=== PATIENT | female | born 1965 | race Caucasian/White ===

== ENCOUNTER 2017-06-30 12:53 | Outpatient (CLI) | payer BC ==
[~2017-06-30 12:53] MED LIST: Gadobenate Dimeglumine 529 MG/1 ML (20ML VIAL) ONE
--- NOTE | 2017-06-30 16:44 | RAD ---
FOUR VIEWS LUMBAR SPINE: INDICATION: History of back surgery with low back pain radiating down the legs for 2 months. COMPARISON: Prior exam dated 09/22/13. FINDINGS: There are bilateral pedicle screws with interconnecting rods at L3 through L5. There are laminectomy changes at L4 and L5. There is stable dextroscoliosis of the lumbar spine at L3. Grade I anterolis thesis of L5 over S1 has developed in the interim. There is some reduction of the listhesis with ext ension. This does not appear to appreciably worsen with flexion. The SI joints appear within normal limits. IMPRESSION: 1. Interval development of grade anterolisthesis of L5 over S1 slightly reduced with extension but d oes not appear to worsen with flexion. 2. Stable postsurgical change of L3 through L5. 3. Stable dextroscoliosis of the lumbar spine. POS: [facility]
--- NOTE | 2017-06-30 17:41 | CT ---
CT LUMBAR SPINE: Date: 06/30/17 COMPARISON: 07/14/13. HISTORY: Back surgery in 2013. Low back pain radiating down the legs for 2 months. TECHNIQUE: Serial axial CT imaging obtained at 2 mm intervals from lower thoracic spine through inferior aspect of sacrum without contrast. Coronal and sagittal reformatted imaging obtained. FINDINGS: Evaluation for central canal and/or neural foraminal stenosis is limited on routine CT. The evaluation of the monosomous structures is limited on noncontrast enhanced imaging. There is bili kieran gas within the left lobe of the liver and there are postsurgical clips in the gallbladder fossa s uggesting prior cholecystectomy. There is diverticulosis of the imaged sigmoid colon. There are bilateral pedicle screws at the L3, L4, and L5 levels with vertically oriented interlocking rods. There is a subtle fracture involving the left L3 pedicle screw at the level of the pedicle. The hardw are appears intact otherwise. There is minimal anterolisthesis of L5 on S1 measuring in the 3.0 mm range. T12-L1: No osseous cause of significant central canal or neural foraminal stenosis. L1-2: No central canal or neural foraminal stenosis. Mild facet hypertrophy present bilaterally. L2-3: Bilateral facet hypertrophy and hypertrophy of ligamentum flavum noted, right greater than left. Ther e is no osseous cause of significant central canal or neural foraminal stenosis. L3-4: There is bilateral facet hypertrophy. There is no osseous cause of significant central canal or neura l foraminal stenosis. L4-5: Bilateral laminectomy changes are present. There is bilateral facet hypertrophy. There is no osseous cause of significant central canal or neural foraminal stenosis. L5-S1: Bilateral laminectomy changes are present. There is prominent bilateral facet hypertrophy, right grea ter than left. Probable mild associated neural foraminal stenosis. No significant central canal steno sis. No acute fracture or evidence of dislocation seen. Old fracture versus bone graft donor site noted in volving the posterior aspect of the right iliac wing medially. IMPRESSION: 1. Postoperative and degenerative changes seen within the lumbar spine. No acute osseous abnormality is seen. 2. There is a subtle fracture deformity involving the left L3 pedicle screw as detailed above. If fu rther assessment for underlying central canal and/or neural foraminal stenosis is clinically warrante d, lumbar spine CT myelogram suggested. POS: [facility]
--- NOTE | 2017-07-01 08:29 | MRI ---
MRI OF THE LUMBAR SPINE WITH AND WITHOUT IV CONTRAST: Date: 06/30/17 TECHNIQUE: Multiplanar, multisequence MR images were obtained of the lumbar spine with and without contrast util izing 13 cc of MultiHance. COMPARISON: MRI lumbar spine dated 06/15/13 and lumbar spine radiograph dated 09/22/13. FINDINGS: Postsurgical change of an L3 through L5 posterolateral interbody fusion is again seen with laminectom y changes at L4 and L5. The bone marrow signal intensity appears within normal limits. Conus is seen to terminate at approximately L1. At L5-S1, there is severe right and moderate left facet joint degenerative change. There is subtle Gr malissa I anterolisthesis. There is no appreciable central canal or neural foraminal narrowing. At L4-5, there is a broad based disc osteophyte complex without appreciable central canal narrowing. There is facet hypertrophy still at L4-5 on the right inducing mild right neural foraminal narrowing which appears similar to the comparison. The previously seen prominent right paracentral synovial cys t is no longer demonstrated. At L3-4, there is no appreciable central canal or neural foraminal narrowing. There is mild broad bas ed disc bulge. At L2-3, there is mild broad based bulge without appreciable central canal or neural foraminal narrow ing. At L1-2, there is mild facet joint degenerative change with broad based bulge without appreciable allen tral canal or neural foraminal narrowing. At T12-L1, there is mild facet joint degenerative change without appreciable central canal or neural foraminal narrowing. No definite abnormal region of enhancement is demonstrated. The visualized retroperitoneum appears wi thin normal limits. IMPRESSION: 1. Postoperative lumbar spine as above. 2. Stable mild residual neural foraminal narrowing on the right at L4-L5 due to facet joint hypertro phy. POS: [facility]
== END 2017-06-30 12:54 | disposition home or self-care (01) ==
LOC: SCSCT 12:53
PROVIDERS: ATTEND Surgery
DX: M47.26 Other spondylosis with radiculopathy, lumbar region (principal); M43.16 Spondylolisthesis, lumbar region; M41.9 Scoliosis, unspecified; M48.061 Spinal stenosis, lumbar region without neurogenic claudication; T84.216A Breakdown (mechanical) of internal fixation device of vertebrae, initial encounter; Z98.1 Arthrodesis status
CPT/HCPCS: 72120; 72131; 72158; A9579

== ENCOUNTER 2018-04-29 07:52 | Outpatient (CLI) | payer BC | END 2018-04-29 07:53 | disposition home or self-care (01) | LOC: BICRAD 07:52 | PROVIDERS: ATTEND Specialist | DX: M51.17 Intervertebral disc disorders with radiculopathy, lumbosacral region (principal); M47.26 Other spondylosis with radiculopathy, lumbar region | CPT/HCPCS: 72110 ==

== ENCOUNTER 2018-12-08 12:49 | Outpatient (CLI) | payer BC ==
--- NOTE | 2018-12-08 13:09 | RAD ---
EXAM: Two views chest PROVIDED CLINICAL HISTORY: Acute upper respiratory infection. Cough. COMPARISON: None FINDINGS: Cardiac silhouette and pulmonary vasculature are within normal limits. Linear and slight patchy densi ty is seen in the anterior aspect of the right middle lobe. While this could be related to atelectasis or scarring, developing pneumonia is a possibility. Follow-up to resolution is recommende d. No pleural fluid or pneumothorax apparent. Mild degenerative changes are seen in the spine. Surgical clips overlie the right upper quadrant. IMPRESSION: Linear and patchy densities anterior aspect right middle lobe. This could be related to atelectasis, but developing pneumonia should be considered, and follow-up chest radiograph to resolution is recommended.
== END 2018-12-08 12:50 | disposition home or self-care (01) ==
LOC: BICRAD 12:49
PROVIDERS: ATTEND Family Medicine
DX: J06.9 Acute upper respiratory infection, unspecified (principal); R05 Cough; J98.4 Other disorders of lung
CPT/HCPCS: 71046

== ENCOUNTER 2018-12-31 12:13 | Outpatient (CLI) | payer BC ==
--- NOTE | 2018-12-31 12:40 | RAD ---
EXAM: Chest PA and lateral: HISTORY: Abnormal findings on diagnostic imaging. Possible pneumonia. COMPARISON: 12/08/2018 FINDINGS: Heart: Normal cardiac silhouette Aorta: Unremarkable Pulmonary vessels: Normal Costophrenic angles: Costophrenic angles are clear. Lungs: Interval decrease in size and in the number of linear opacities in the middle lobe. Previous f indings may have been due to atelectasis or infiltrate. Residual linear opacity may represent subsegmental atelectasis or scar. No suspicious masses or consolidation with air bronchograms. Pneumothorax: No pneumothorax Osseous structures: Lumbar fusion hardware is incompletely evaluated. IMPRESSION: No acute cardiopulmonary process.
== END 2018-12-31 12:14 | disposition home or self-care (01) ==
LOC: BICRAD 12:13
PROVIDERS: ATTEND Family Medicine
DX: R93.89 Abnormal findings on diagnostic imaging of other specified body structures (principal)
CPT/HCPCS: 71046

== ENCOUNTER 2019-01-28 15:27 | Outpatient (CLI) | payer BC ==
--- NOTE | 2019-01-28 17:44 | MRI ---
MRI THORACIC SPINE NONCONTRAST: 01/28/19 HISTORY: 53-year-old female with M54.6, thoracic spine pain. COMPARISON: No prior MRIs of thoracic spine. FINDINGS: There is multilevel high grade degenerative disc disease in the cervical spine at C3-4, C4-5, C5-6, c ausing high grade central spinal canal stenoses, incompletely visualized on the manual arts therapist sagittal sequen ce. Thoracic vertebral body heights are maintained. Thoracic spinal cord is normal is size and signa l. No significant central spinal canal stenosis at any level. No enrique thoracic spinal cord compressi on at any level. Conus medullaris terminates at upper L2 level. Modic type II end plate marrow change s anteriorly at all levels from T5-6 through T9-10. Additional small region of Modic type I change at anterior inferior corner of T7. At T7-8, there is a small focal central disc protrusion or disc-osteophyte complex which abuts the ve ntral surface of the spinal cord. At T8-9, there is a central and left paracentral focal disc protrusion or disc-osteophyte complex kaylee t protrudes into the anterior aspect of the spinal canal but does not abut the spinal cord. There is no high grade neural foraminal stenosis and no enrique nerve root impingement, at any level. P erivertebral spaces are unremarkable. IMPRESSION: 1. 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 2. Small focal disc herinations or disc-osteophyte complexes protruding into the spinal canal at T7-8 and T8-9. The T7-8 protrusion abuts the ventral surface of the spinal cord. 3. No significant central spinal canal stenosis or significant neural foraminal stenosis at any level. 4. High grade cervical spondylosis causing multilevel high grade cervical central spinal canal s tenosis, incompletely imaged. Consider dedicated MRI of the cervical spine if the patient is symptoma tic there. POS: [facility]
== END 2019-01-28 15:28 | disposition home or self-care (01) ==
LOC: TBSIIMAG 15:27
PROVIDERS: ATTEND Family Medicine
DX: M54.6 Pain in thoracic spine (principal); M51.34 Other intervertebral disc degeneration, thoracic region; M47.812 Spondylosis without myelopathy or radiculopathy, cervical region; M48.02 Spinal stenosis, cervical region; M51.24 Other intervertebral disc displacement, thoracic region
CPT/HCPCS: 72146

== ENCOUNTER 2019-10-12 10:59 | Day surgery (SDC) | payer BC ==
[2019-10-11 10:46] VITALS: BMI 29.2
[2019-10-12] MEDS ORDERED: Propofol 1,000 MG/100 ML VIAL IV ONE (12:06)
[2019-10-12] MEDS ORDERED: Midazolam HCl 2 mg/2 ml Vial ONE (12:06)
[2019-10-12] MEDS ORDERED: Fentanyl 100 MCG/2 ML VIAL ONE (12:06)
[2019-10-12] MEDS ORDERED: Bupivacaine PF 0.5% 30 ML VIAL ONE (12:09)
[2019-10-12] MEDS ORDERED: EPINEPHrine 1 MG/ML AMP ONE (12:09)
[2019-10-12] MEDS ORDERED: Levofloxacin 500 mg/D5W 100 ml Premix Bag ONE (12:20)
--- NOTE | 2019-10-12 14:50 | RAD ---
THORACIC SPINE ONE VIEW: 10/12/19 HISTORY: Dorsal column stimulator insertion. A single C-arm view shows dorsal column stimulator is labeled as being at the T7-8 disc level. IMPRESSION: Placement of dorsal column stimulator. POS: [facility]
--- NOTE | 2019-10-12 20:52 | OP ---
DATE OF PROCEDURE: 10/12/2019 PREOPERATIVE DIAGNOSES: 1. Post-laminectomy syndrome. 2. Chronic pain syndrome. 3. Lumbar radiculopathy. POSTOPERATIVE DIAGNOSES: 1. Post-laminectomy syndrome. 2. Chronic pain syndrome. 3. Lumbar radiculopathy. PROCEDURE PERFORMED: 1. Spinal cord stimulator, generator implant. 2. Spinal cord stimulator lead implant x2. 3. Programming. SPECIMENS REMOVED: None. ESTIMATED BLOOD LOSS: 5 mL. DESCRIPTION OF PROCEDURE: The patient was taken to the procedure room, placed prone on the procedure room table. A time-out was performed. The back was prepped with DuraPrep and sterile drapes were applied. Using fluoroscopy, we located the interspace of L1-L2 and anesthetized the skin over this. We then made an incision vertically between L1 and L2 and then blunt dissected this down to the fascia. We used a 14-gauge supplied Cellayuhy needle inserted in paramedian fashion into the L1-L2 ligament. We used loss of resistance to gain access to the epidural space. Aspiration was negative for CSF or heme. We threaded an 8 Contact Ramachandran Spinal Cord Stimulator lead up the midline dorsal epidural space to the bottom of T7. We performed the exact same technique on the contralateral side. However, once the lead was then placed, the stylet on the lead would not retract. Therefore, we took this lead out and discarded it as it was a defective lead. We placed a new lead into the midline dorsal epidural space to be parallel to the initial lead that was placed. Stimulation was performed with the patient awake and she noted paresthesia in all pain areas. We then anesthetized the skin over the left buttock as to make an incision for the battery site. We made an incision and blunt dissected this down to Jeffrey's fascia. We dissected this inferiorly and superiorly to make a pocket. We placed anchors over the leads at this point and then anchor, so that it is secured to leads. We sutured this down to the fascia with 2-0 silk suture x2 for each lead. We tugged on the leads under continuous fluoro and the leads were not moving at this point. We placed a tunneling device between the 2 incision sites and threaded the leads through this tunneling device, brought them up to the battery site. We connected the battery to them and torqued them down to fixate them to the battery. Impedances were checked, which were all good. The battery was slipped into the pocket. We approximated all fascial layers with 2-0 Vicryl suture in simple interrupted fashion. We then closed the skin layer with 3-0 Vicryl Rapide suture in a subcuticular stitch. We then placed Dermabond over this, allowed it to dry and then placed a sterile 4 x 4 tape over this. The patient's was taken to day stay under stable condition. Job ID: [id number]
== END 2019-10-12 16:00 | disposition home or self-care (01) ==
LOC: SDC 10:59
PROVIDERS: ATTEND Specialist
PROC: 0JH70BZ Insertion of Single Array Stimulator Generator into Back Subcutaneous Tissue and Fascia, Open Approach (ICD-10-PCS; principal; 2019-10-12)
PROC: 00HU3MZ Insertion of Neurostimulator Lead into Spinal Canal, Percutaneous Approach (ICD-10-PCS; principal; 2019-10-12)
DX: M96.1 Postlaminectomy syndrome, not elsewhere classified (principal); G89.4 Chronic pain syndrome; M51.17 Intervertebral disc disorders with radiculopathy, lumbosacral region; M47.27 Other spondylosis with radiculopathy, lumbosacral region; F41.9 Anxiety disorder, unspecified; F32.9 Major depressive disorder, single episode, unspecified; J45.909 Unspecified asthma, uncomplicated; Z88.0 Allergy status to penicillin; Z88.5 Allergy status to narcotic agent
CPT/HCPCS: 72020; 76000; C1767; C1778; J0171; J1956; J2250; J2704; J3010; S0020

== ENCOUNTER 2019-10-23 02:20 | Emergency (ER) | payer BC ==
[2019-10-23 02:59] LABS: #Eosinphils 0.3 thou/uL (0.0-0.7); #Lymphocytes 1.4 thou/uL (1.20-3.40); #Monocytes 0.6 thou/uL (0.11-0.59); #Neutrophils 5.8 thou/uL (1.40-6.50); %Basophils 0.5 % (0.0-1.0); %Lymphocytes 16.5 % (21.0-51.0); %Monocytes 7.6 % (0.0-10.0); %Neutrophils 71.4 % (42.0-75.0); Hemoglobin 15.3 g/dL (12.0-16.0); Mean Corpuscular HGB CONC 35.1 g/dL (32.0-36.0); Mean Corpuscular Hemoglobin 32.7 pg (27.0-31.0); Mean Corpuscular Volume 93.2 fL (78.0-98.0); Mean Platelet Volume 8.7 fL (7.4-10.4); Platelet Count 339 thou/uL (130-400); RBC Distribution Width 11.4 % (11.5-14.5); Red Blood Cell (RBC) Count 4.69 mill/uL (4.20-5.40); White Blood Cell (WBC) Count 8.2 thou/uL (4.8-10.8)
[2019-10-23 03:18] LABS: Bilirubin Moderate (Negative); Blood, Urine Moderate (Negative); Glucose, Urine (Dipstick) 100 mg/dL (Negative); Leukocyte Small (Negative); Nitrite Negative (Negative); Protein, Urine (Dipstick) 100 mg/dL (Neg-Trace)
[2019-10-23 03:24] LABS: Bacteria/HPF 3+ HPF (None Seen); Squamous Epithelial Greater than 50 HPF (0-3); Transitional Epithelial 0-3 HPF (None Seen); WBC/HPF Greater than 50 HPF (0-3)
[2019-10-23 03:33] LABS: Clarity Cloudy (Clear)
[2019-10-23 03:41] LABS: RBC/HPF 21-50 HPF (0-3)
[2019-10-23 03:44] LABS: ALT (SGPT) 92 U/L (8-55); AST (SGOT) 44 U/L (5-34); Albumin 4.4 g/dL (3.5-5.0); Alkaline Phosphatase 79 U/L (40-110); Anion Gap 19 mmol/L (10-20); BUN (Urea Nitrogen) 13 mg/dL (9.8-20.1); Bilirubin, Total 0.3 mg/dL (0.2-1.2); Calc. Creatinine Clearance 0 mL/min (70-130); Calcium 9.4 mg/dL (7.8-10.44); Carbon Dioxide 16 mmol/L (22-29); Chloride 107 mmol/L (98-107); Estimated GFR-MDRD 68; Globulin 3.4 g/dL (2.4-3.5); Glucose 102 mg/dL (70-105); Potassium 4.8 mmol/L (3.5-5.1); Protein, Total 7.8 g/dL (6.0-8.3); Sodium 137 mmol/L (136-145)
[2019-10-23] MEDS ORDERED: cefTRIAXone\\ROCEPHIN 1 GM VIAL ONE (03:48)
--- NOTE | 2019-10-23 09:55 | RAD ---
CHEST 1 VIEW: Date: 10/23/2019 HISTORY: Fever. COMPARISON: Radiograph dated 10/12/2019 of thoracic spine. FINDINGS: Dorsal column stimulator electrodes are visualized and similar to the comparison exam. Lungs are clear. No pneumothorax. No effusion. No acute osseous abnormality. IMPRESSION: No acute intrathoracic abnormality. POS: [facility]
== END 2019-10-23 04:48 | disposition home or self-care (01) ==
LOC: ERS 02:20
DX: J10.1 Influenza due to other identified influenza virus with other respiratory manifestations (principal); N39.0 Urinary tract infection, site not specified; Z79.899 Other long term (current) drug therapy
CPT/HCPCS: 71045; 80053; 81003; 81015; 83605; 85025; 87040; 87804; 93005; 96361; 96365; J0696

== ENCOUNTER 2020-01-03 13:43 | Outpatient (CLI) | payer BC ==
--- NOTE | 2020-01-03 14:33 | CT ---
CT lumbar spine without contrast: HISTORY: Post laminectomy syndrome. Pain/pinching sensation in back that started one month ago. Right hip and heel pain. COMPARISON: 06/30/2017 FINDINGS: Minimal vascular calcifications are seen in the abdominal aorta. A few colonic diverticula are seen i n the region of the sigmoid colon. Remaining visualized retroperitoneal structures demonstrate a grossly normal nonenhanced CT appearance. Postoperative changes lumbar spine are again seen related to posterior fusion at the L3-4 and L4-5 le vels with bipedicular screws and posterior rods again transfixing these levels. Stable grade 1 anterolisthesis of L5 on S1 is present. Laminectomy defects are again seen extending from the L3-4 le javier to the L5-S1 level. Fracture of the left L3 pedicle screw is again seen and unchanged. Dorsal column stimulator device is partially imaged and entering the T12-L1 level. There is deformity again seen involving the right iliac bone which may be postoperative in origin versus remote injury. L1-2: No significant central canal or neural foraminal narrowing is seen. L2-3: Slight retrolisthesis of L2 on L3. Mild facet hypertrophic changes are present. No significant central canal or neural foraminal narrowing is present. L3-4: Minimal central disc protrusion is present. There is artifact seen at this level due to the ped icular screws, but central spinal canal and neural foramina do appear patent. L4-5: Artifact is seen at this level limiting evaluation of the central spinal canal, but there is no bony encroachment on the central spinal canal. There is suggestion of minimal disc osteophyte complex. Neural foramina are patent. L5-S1: Vacuum phenomenon is seen in the intervertebral disc, and as noted above, there is slight ante rolisthesis of L5 on S1. Prominent facet hypertrophic changes are noted. The left neural foramen is patent. Mild right-sided neural foraminal narrowing is present primarily related to the facet hypertr ophic changes at this level. IMPRESSION: 1. Postoperative and degenerative changes of the lumbar spine which have not significantly changed wh en compared to the prior exam. Subtle fracture involving the left L3 pedicle screw is again seen.
== END 2020-01-03 13:44 | disposition home or self-care (01) ==
LOC: BICCT 13:43
PROVIDERS: ATTEND Nurse Practitioner Family
DX: M96.1 Postlaminectomy syndrome, not elsewhere classified (principal); M47.816 Spondylosis without myelopathy or radiculopathy, lumbar region; T84.119A Breakdown (mechanical) of internal fixation device of unspecified bone of limb, initial encounter
CPT/HCPCS: 72131

== ENCOUNTER 2022-05-16 13:48 | Day surgery (SDC) | payer BC ==
[2022-05-15 13:04] VITALS: BMI 28.3
[2022-05-16] MEDS ORDERED: Bupivacaine HCl 0.5%/Epinephrine 1:200,000/PF 30 ml Vial ONE (15:35)
[2022-05-16] MEDS ORDERED: fentaNYL Citrate/PF 100 MCG/2 ML SYRINGE ONE (15:39)
[2022-05-16] MEDS ORDERED: Levofloxacin 500 mg/D5W 100 ml Premix Bag ONE (15:40)
[2022-05-16] MEDS ORDERED: PROPOFOL 200 MG/20 ML VIAL ONE (15:46)
[2022-05-16] MEDS ORDERED: Lidocaine 1% MPF 2 ML VIAL ONE (15:46)
== END 2022-05-16 17:41 | disposition home or self-care (01) ==
LOC: SDC 13:48
PROVIDERS: ATTEND Specialist
PROC: 0JWT0MZ Revision of Stimulator Generator in Trunk Subcutaneous Tissue and Fascia, Open Approach (ICD-10-PCS; principal; 2022-05-16)
DX: M96.1 Postlaminectomy syndrome, not elsewhere classified (principal); G89.4 Chronic pain syndrome; M54.16 Radiculopathy, lumbar region; T85.840A Pain due to nervous system prosthetic devices, implants and grafts, initial encounter; E78.5 Hyperlipidemia, unspecified; M43.16 Spondylolisthesis, lumbar region; Z79.899 Other long term (current) drug therapy; Z88.0 Allergy status to penicillin; Z88.5 Allergy status to narcotic agent; Z98.1 Arthrodesis status; Y75.3 Surgical instruments, materials and neurological devices (including sutures) associated with adverse incidents
CPT/HCPCS: C1713; C1787; J1956; J2704; J3370

== ENCOUNTER 2022-07-24 11:49 | Outpatient (CLI) | payer BC ==
[2022-07-24 14:53] LABS: Hemoglobin 15.1 g/dL (12.0-15.5); Mean Corpuscular HGB CONC 33.6 g/dL (32.0-36.0); Mean Corpuscular Hemoglobin 30.5 pg (27.0-33.0); Mean Corpuscular Volume 90.9 fl (81.6-98.3); Mean Platelet Volume 11.9 fl (7.4-10.4); Platelet Count 368 10x3/uL (150-450); RBC Distribution Width 12.8 % (11.5-14.5); Red Blood Cell (RBC) Count 4.95 10x6/uL (3.90-5.03); White Blood Cell (WBC) Count 9.6 10x3/uL (3.5-10.5)
[2022-07-24 15:13] LABS: PTT 26.8 sec (22.0-33.0); Prothrombin Time 10.4 sec (9.5-12.1)
[2022-07-24 15:26] LABS: Anion Gap 17 mmol/L (10-20); BUN (Urea Nitrogen) 15 mg/dL (9.8-20.1); Calc. Creatinine Clearance 0 mL/min (70-130); Calcium 10.3 mg/dL (7.8-10.44); Carbon Dioxide 22 mmol/L (22-29); Chloride 106 mmol/L (98-107); Estimated GFR 86; Glucose 86 mg/dL (70-105); Potassium 4.7 mmol/L (3.5-5.1); Sodium 140 mmol/L (136-145)
== END 2022-07-24 11:50 | disposition home or self-care (01) ==
LOC: LABBT 11:49
PROVIDERS: ATTEND Surgery
DX: Z01.812 Encounter for preprocedural laboratory examination (principal); M50.10 Cervical disc disorder with radiculopathy, unspecified cervical region; M48.02 Spinal stenosis, cervical region
CPT/HCPCS: 80048; 85027; 85610; 85730; 93005; 93010

== ENCOUNTER 2022-09-16 08:48 | Outpatient (CLI) | payer BC | END 2022-09-16 08:49 | disposition home or self-care (01) | LOC: TBSIIMAG 08:48 | PROVIDERS: ATTEND Surgery | DX: M47.22 Other spondylosis with radiculopathy, cervical region (principal); M50.11 Cervical disc disorder with radiculopathy, high cervical region; Z98.1 Arthrodesis status | CPT/HCPCS: 72040 ==

== ENCOUNTER 2023-03-28 12:24 | Outpatient (CLI) | payer BC | END 2023-03-28 12:25 | disposition home or self-care (01) | LOC: RAD 12:24 | PROVIDERS: ATTEND Family Medicine | DX: J06.9 Acute upper respiratory infection, unspecified (principal) | CPT/HCPCS: 71046 ==

== ENCOUNTER 2023-04-22 17:30 | Outpatient (CLI) | payer BC | END 2023-04-22 17:31 | disposition home or self-care (01) | LOC: SLEEPLAB 17:30 | PROVIDERS: ATTEND Family Medicine | DX: G47.33 Obstructive sleep apnea (adult) (pediatric) (principal); E66.9 Obesity, unspecified; R06.83 Snoring; R53.83 Other fatigue | CPT/HCPCS: 95800 ==

== ENCOUNTER 2023-06-12 10:43 | Outpatient (CLI) | payer BC | END 2023-06-12 10:44 | disposition home or self-care (01) | LOC: BICMAMMO 10:43 | PROVIDERS: ATTEND Family Medicine | DX: Z12.31 Encounter for screening mammogram for malignant neoplasm of breast (principal); Z98.890 Other specified postprocedural states | CPT/HCPCS: 77063; 77067 ==

== ENCOUNTER 2023-08-11 13:09 | Outpatient (CLI) | payer BC | END 2023-08-11 13:10 | disposition home or self-care (01) | LOC: BICCT 13:09 | PROVIDERS: ATTEND Family Medicine | DX: M47.26 Other spondylosis with radiculopathy, lumbar region (principal); Z98.1 Arthrodesis status | CPT/HCPCS: 72131 ==

== ENCOUNTER 2023-09-18 12:00 | Outpatient (CLI) | payer BC | END 2023-09-18 12:01 | disposition home or self-care (01) | LOC: SCSCT 12:00 | PROVIDERS: ATTEND Surgery | DX: M47.816 Spondylosis without myelopathy or radiculopathy, lumbar region (principal); M54.6 Pain in thoracic spine; M51.24 Other intervertebral disc displacement, thoracic region; G95.89 Other specified diseases of spinal cord; M48.8X6 Other specified spondylopathies, lumbar region; R60.9 Edema, unspecified; M48.061 Spinal stenosis, lumbar region without neurogenic claudication; M48.07 Spinal stenosis, lumbosacral region; M89.38 Hypertrophy of bone, other site; M25.78 Osteophyte, vertebrae; M51.36 Other intervertebral disc degeneration, lumbar region; M47.814 Spondylosis without myelopathy or radiculopathy, thoracic region; Z98.1 Arthrodesis status | CPT/HCPCS: 72128; 72146; 72148 ==

== ENCOUNTER 2024-06-21 12:16 | Outpatient (CLI) | payer BC | END 2024-06-21 12:17 | disposition home or self-care (01) | LOC: BICMAMMO 12:16 | PROVIDERS: ATTEND Family Medicine | DX: Z12.31 Encounter for screening mammogram for malignant neoplasm of breast (principal) | CPT/HCPCS: 77063; 77067 ==